=== PATIENT | female | born 1975 | race American Indian/Alaskan Native ===

== ENCOUNTER 2018-11-26 18:44 | Emergency (ER) | payer OTHER, BC ==
[2018-11-26] MEDS ORDERED: NORCO 5/325 PO STA (20:43)
--- NOTE | 2018-11-26 22:25 | XRay Report ---
PROCEDURE: XR SPINE CERVICAL 2-3V TECHNIQUE: Cervical spine, 3 views HISTORY: neck pain COMPARISONS: None available FINDINGS: The vertebral body heights and alignment are maintained. There are mild degenerative disc changes at C6-7. Prevertebral soft tissues are within normal limits in thickness. Odontoid process is intact. IMPRESSION: No acute osseous abnormality is seen. This document is electronically signed by Chantal Castellanos MD., November 26 2018 10:23:37 PM ET
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
[2018-11-26 23:04] VITALS: BP 108/88
== END 2018-11-26 23:02 | disposition home or self-care (01) ==
LOC: ED 18:44
DX: M62.838 Other muscle spasm (principal); M25.511 Pain in right shoulder; V89.2XXA Person injured in unspecified motor-vehicle accident, traffic, initial encounter; Y93.89 Activity, other specified; Y92.488 Other paved roadways as the place of occurrence of the external cause; Y99.8 Other external cause status
CPT/HCPCS: 72040; 99283